=== PATIENT | male | born 1995 | race Caucasian/White ===

== ENCOUNTER 2017-11-29 23:54 | Emergency (ER) | payer OTHER ==
[2017-11-30] MEDS ORDERED: Ketorolac Tromethamine 30 MG/ML VIAL ONE (00:20)
[2017-11-30] MEDS ORDERED: Ondansetron HCl/PF 4 MG/2 ML Vial ONE (00:20)
--- NOTE | 2017-11-30 07:38 | CT ---
CT OF THE BRAIN WITHOUT CONTRAST: DATE: 11/30/17. FINDINGS: A noncontrast CT was done for evaluation of headache. The ventricles are normal in size with no shif t. No intracranial bleeding or extraaxial hematoma was present. There was no sign of mass, edema, o r stroke. The ventricular system appears normal for age. The visible paranasal sinuses are clear. IMPRESSION: No acute intracranial findings. POS: HOME
== END 2017-11-30 01:28 | disposition home or self-care (01) ==
LOC: BURERS 23:54
DX: R51 Headache (principal); R50.9 Fever, unspecified; R11.2 Nausea with vomiting, unspecified; Z79.899 Other long term (current) drug therapy
CPT/HCPCS: 70450; 96361; 96374; 96375; J1885; J2405

== ENCOUNTER 2022-03-17 14:52 | Outpatient (CLI) | payer BC | END 2022-03-17 14:53 | disposition home or self-care (01) | LOC: BURRAD 14:52 | PROVIDERS: ATTEND Nurse Practitioner Family | DX: M79.672 Pain in left foot (principal) ==